=== PATIENT | female | born 1960 | race Caucasian/White ===

== ENCOUNTER 2016-11-09 | Outpatient (CLI) | payer MEDICARE | END 2016-11-09 04:35 | disposition critical access hospital (66) | CPT/HCPCS: A0425; A0427 ==

== ENCOUNTER 2016-11-09 04:55 | Inpatient (IN) | payer MEDICARE ==
[2016-11-09] MEDS ORDERED: ACETAMINOPHEN 325 MG TABLET PO STA (05:11)
[2016-11-09] MEDS ORDERED: cefTRIAXone 1 GM in SODIUM CHLORIDE 0.9% MINIBAG 100 ML IV STA (05:11)
[2016-11-09] MEDS ORDERED: AZITHROMYCIN INJ 500 MG in SODIUM CHLORIDE 0.9% 250 ML IV STA (05:11)
[2016-11-09] MEDS ORDERED: ACETAMINOPHEN 325 MG TABLET PO ONE (05:17)
[2016-11-09] MEDS ORDERED: cefTRIAXone 1 GM VIAL ONE (05:17)
[2016-11-09] MEDS ORDERED: SODIUM CHLORIDE 0.9% 1,000 ML IV STA (06:33)
[2016-11-09] MEDS ORDERED: SODIUM CHLORIDE FLUSH 0.9% 10 ML SYRINGE IVP PRN (06:50)
[2016-11-09] MEDS ORDERED: cefTRIAXone 1 GM in SODIUM CHLORIDE 0.9% MINIBAG 100 ML IV ONE (09:00)
[2016-11-09] MEDS: IPRATROPIUM/ALBUTEROL 3 ML NEB INH PRN ×2 (09:30→14:30)
[2016-11-09] MEDS ORDERED: SODIUM CHLORIDE 0.9% 1,000 ML IV ONE ×2 (09:39→16:36)
[2016-11-09] MEDS: POLYETHYLENE GLYCOL 3350 17 GM PACKET PO SCH (09:44)
[2016-11-09] MEDS ORDERED: ESTRADIOL CYPIONATE PO SCH (09:45)
[2016-11-09] MEDS: NS W/20 MEQ KCL 1,000 ML IV SCH ×2 (11:45→14:30)
[2016-11-09] MEDS: ENOXAPARIN 40 MG/0.4 ML SYRINGE SUBQ SCH (11:45)
[2016-11-09] MEDS: OSELTAMIVIR 75 MG CAPSULE PO SCH ×2 (11:45→21:41)
[2016-11-09] MEDS: SODIUM CHLORIDE FLUSH 0.9% 10 ML SYRINGE IVP SCH ×2 (13:03→23:36)
[2016-11-09] MEDS: ACETAMINOPHEN 325 MG TABLET PO PRN ×2 (14:47→21:42)
[2016-11-09] MEDS: LORazepam 0.5 MG TABLET PO PRN (20:08)
[2016-11-09] MEDS: ZOLPIDEM 5 MG TABLET PO SCH (21:41)
[2016-11-09] MEDS: TIMOLOL 0.5% OPHTH DROPS EACHEYE SCH (23:36)
[2016-11-10] MEDS: NS W/20 MEQ KCL 1,000 ML IV SCH ×2 (01:53→20:52)
[2016-11-10] MEDS ORDERED: SODIUM CHLORIDE 0.9% 1,000 ML IV ONE (01:57)
[2016-11-10] MEDS: LORazepam 0.5 MG TABLET PO PRN ×3 (06:06→20:51)
[2016-11-10] MEDS: SODIUM CHLORIDE FLUSH 0.9% 10 ML SYRINGE IVP SCH ×3 (06:06→20:52)
[2016-11-10] MEDS: IPRATROPIUM/ALBUTEROL 3 ML NEB INH PRN ×3 (07:35→15:00)
[2016-11-10] MEDS ORDERED: TIMOLOL 0.5% OPHTH DROPS EACHEYE SCH (09:00)
[2016-11-10] MEDS ORDERED: cefTRIAXone 500 MG VIAL IVP SCH (09:00)
[2016-11-10] MEDS: cefTRIAXone 2 GM in SODIUM CHLORIDE 0.9% MINIBAG 100 ML IV SCH (09:37)
[2016-11-10] MEDS: OSELTAMIVIR 75 MG CAPSULE PO SCH ×2 (09:37→20:51)
[2016-11-10] MEDS: POLYETHYLENE GLYCOL 3350 17 GM PACKET PO SCH (09:37)
[2016-11-10] MEDS: ENOXAPARIN 40 MG/0.4 ML SYRINGE SUBQ SCH (09:37)
[2016-11-10] MEDS: TIMOLOL 0.5% OPHTH DROPS EACHEYE SCH ×2 (09:38→20:51)
[2016-11-10] MEDS: AZITHROMYCIN INJ 500 MG in SODIUM CHLORIDE 0.9% 250 ML IV SCH (10:47)
[2016-11-10] MEDS: PANTOPRAZOLE 40 MG TABLET PO SCH (14:48)
[2016-11-10] MEDS: ZOLPIDEM 5 MG TABLET PO SCH (20:50)
[2016-11-11] MEDS: NS W/20 MEQ KCL 1,000 ML IV SCH ×3 (01:40→23:38)
[2016-11-11] MEDS: SODIUM CHLORIDE FLUSH 0.9% 10 ML SYRINGE IVP SCH ×3 (06:30→20:51)
[2016-11-11] MEDS: PANTOPRAZOLE 40 MG TABLET PO SCH (06:45)
[2016-11-11] MEDS: LORazepam 0.5 MG TABLET PO PRN ×3 (06:52→23:38)
[2016-11-11] MEDS: traMADol 50 MG TABLET PO PRN ×2 (06:52→13:47)
[2016-11-11] MEDS: POLYETHYLENE GLYCOL 3350 17 GM PACKET PO SCH (08:46)
[2016-11-11] MEDS: ENOXAPARIN 40 MG/0.4 ML SYRINGE SUBQ SCH (08:46)
[2016-11-11] MEDS: cefTRIAXone 2 GM in SODIUM CHLORIDE 0.9% MINIBAG 100 ML IV SCH (08:46)
[2016-11-11] MEDS: OSELTAMIVIR 75 MG CAPSULE PO SCH ×2 (08:47→21:26)
[2016-11-11] MEDS: ALBUTEROL NEB 2.5 MG/3 ML INH PRN ×2 (09:21→17:40)
[2016-11-11] MEDS: AZITHROMYCIN INJ 500 MG in SODIUM CHLORIDE 0.9% 250 ML IV SCH (11:07)
[2016-11-11] MEDS: TIMOLOL 0.5% OPHTH DROPS EACHEYE SCH ×2 (11:07→21:26)
[2016-11-11] MEDS: IPRATROPIUM/ALBUTEROL 3 ML NEB INH PRN (22:07)
[2016-11-11] MEDS: ACETAMINOPHEN 325 MG TABLET PO PRN (22:27)
[2016-11-11] MEDS: ZOLPIDEM 5 MG TABLET PO SCH (23:39)
[2016-11-12] MEDS: SODIUM CHLORIDE FLUSH 0.9% 10 ML SYRINGE IVP SCH (01:47)
[2016-11-12] MEDS: PANTOPRAZOLE 40 MG TABLET PO SCH (06:20)
[2016-11-12] MEDS ORDERED: POTASSIUM CHLORIDE 20 MEQ TABLET PO ONE (08:15)
[2016-11-12] MEDS: ENOXAPARIN 40 MG/0.4 ML SYRINGE SUBQ SCH (08:34)
[2016-11-12] MEDS: OSELTAMIVIR 75 MG CAPSULE PO SCH (08:34)
[2016-11-12] MEDS: cefTRIAXone 2 GM in SODIUM CHLORIDE 0.9% MINIBAG 100 ML IV SCH (08:34)
[2016-11-12] MEDS: LORazepam 0.5 MG TABLET PO PRN (08:53)
[2016-11-12] MEDS: traMADol 50 MG TABLET PO PRN (08:53)
[2016-11-12] MEDS: POLYETHYLENE GLYCOL 3350 17 GM PACKET PO SCH (10:14)
== END 2016-11-12 13:35 | disposition home or self-care (01) | DRG 871 ==
DX: A41.9 Sepsis, unspecified organism (principal); A41.89 Other specified sepsis; J10.00 Influenza due to other identified influenza virus with unspecified type of pneumonia; J45.901 Unspecified asthma with (acute) exacerbation; E86.0 Dehydration; R09.02 Hypoxemia; I95.9 Hypotension, unspecified; K21.9 Gastro-esophageal reflux disease without esophagitis; Z79.82 Long term (current) use of aspirin

== ENCOUNTER 2017-07-04 16:06 | Outpatient (CLI) | payer MEDICARE ==
--- NOTE | 2017-07-05 15:21 | XRAY Report ---
EXAM: RIGHT KNEE RADIOGRAPHY EXAM DATE: 07/04/2017 04:29 PM. CLINICAL HISTORY: 5 VIEW TRAUMA SERIES FOR RT KNEE STRAIN/EDEMA. COMPARISON: None. TECHNIQUE: 5 views. FINDINGS: Bones: No cortical step off or findings of an acute fracture. No destructive bone lesion. In the supe rior tibial metaphysis there is an endosteal bone lesion which is ossification including rings and ar cs of calcification with a chondroid matrix. Joints: Normal. No effusion. No subluxations. Soft Tissues: Normal. No soft tissue swelling. IMPRESSION: 1. No fracture or joint effusion. 2. Sclerotic lesion superior tibia, favoring an end chondroma or chronic bone infarct. [facility] Referring Provider Line: [phone] SITE ID: [id number]
== END 2017-07-04 16:07 | disposition home or self-care (01) ==
LOC: DI.N 16:06
PROVIDERS: ATTEND Family Medicine
DX: M89.9 Disorder of bone, unspecified (principal)

== ENCOUNTER 2017-10-25 15:16 | Outpatient (CLI) | payer MEDICARE ==
--- NOTE | 2017-10-25 15:45 | XRAY Report ---
EXAM: CHEST RADIOGRAPHY EXAM DATE: 10/25/2017 03:37 PM. CLINICAL HISTORY: Pneumonia. COMPARISON: None. TECHNIQUE: 2 views. FINDINGS: Lungs/Pleura: No focal opacities evident. No pleural effusion. No pneumothorax. Normal volumes. Mediastinum: Heart and mediastinal contours are unremarkable. Tortuosity of the descending thoracic a natalie. Small hiatal hernia. Other: None. IMPRESSION: No acute abnormality of the chest demonstrated. [facility] Referring Provider Line: [phone] SITE ID: [id number]
--- NOTE | 2017-10-25 15:45 | XRAY Preliminary Report ---
Exam: XR CHEST 2 VIEW X-RAY IMPRESSION: No acute abnormality of the chest demonstrated. [facility] SITE ID: [id number]
== END 2017-10-25 15:17 | disposition home or self-care (01) ==
LOC: DI 15:16
PROVIDERS: ATTEND Specialist
DX: J18.9 Pneumonia, unspecified organism (principal)
CPT/HCPCS: 71046

== ENCOUNTER 2019-07-28 13:54 | Outpatient (CLI) | payer MEDICARE | END 2019-07-28 13:55 | disposition home or self-care (01) | LOC: DI.N 13:54 | PROVIDERS: ATTEND Internal Medicine | DX: Z53.9 Procedure and treatment not carried out, unspecified reason (principal) ==

== ENCOUNTER 2019-07-29 15:22 | Outpatient (CLI) | payer MEDICARE ==
--- NOTE | 2019-07-31 | XRAY Report ---
Reason: CENTRAL CHEST PAIN Procedure Date: 07/29/2019 Accession Number: [id number] / [id number] Procedure: XRN - Chest 2 View X-Ray CPT Code: 00945 FULL RESULT: EXAM: CHEST RADIOGRAPHY EXAM DATE: 07/29/2019 03:38 PM. CLINICAL HISTORY: CENTRAL CHEST PAIN. COMPARISON: CHEST 2 VIEW 10/25/2017 3:27 PM. TECHNIQUE: 2 views. FINDINGS: Lungs/Pleura: No focal opacities evident. No pleural effusion. No pneumothorax. Normal volumes. Mediastinum: Heart and mediastinal contours are unremarkable. Other: No acute bone findings are seen. IMPRESSION: No acute cardiopulmonary disease seen. [facility]
== END 2019-07-29 15:23 | disposition home or self-care (01) ==
LOC: DI.N 15:22
PROVIDERS: ATTEND Internal Medicine
DX: R07.9 Chest pain, unspecified (principal)
CPT/HCPCS: 71046

== ENCOUNTER 2020-01-13 18:18 | Outpatient (CLI) | payer MEDICARE | END 2020-01-13 18:19 | disposition home or self-care (01) | LOC: COV 18:18 | PROVIDERS: ATTEND Family Medicine | DX: R05 Cough (principal); R50.9 Fever, unspecified ==

== ENCOUNTER 2020-09-24 11:23 | Outpatient (CLI) | payer MEDICARE ==
--- NOTE | 2020-09-24 13:31 | Ultrasound Report ---
PROCEDURE: Abdomen Limited INDICATIONS: RUQ ABD PAIN TECHNIQUE: Real-time focused scanning was performed of the abdomen, with image documentation. COMPARISON: None FINDINGS: The liver demonstrates normal size. The liver demonstrates generalized heterogeneity. Lama javed, no liver lesions are detected. No gallstones or sludge can be seen. The gallbladder wall does not appear thickened. There is no spec ific pericholecystic fluid. The sonographic Petersen's sign is negative. No biliary ductal dilatation is seen. The common bile duct measures 6 mm. The visualized pancreas is within normal limits. The visualized right kidney is unremarkable. The IVC is patent. IMPRESSION: The gallbladder demonstrates a normal sonographic appearance. No biliary dilatation is seen. Heterogeneous appearing liver, without a focal mass identified. No right kidney hydronephrosis is seen. Reviewed by: Jhony Cotto MD on 09/24/2020 12:30 PM [facility] Approved by: Jhony Cotto MD on 09/24/2020 12:30 PM [facility] Station ID: [id number]
== END 2020-09-24 11:24 | disposition home or self-care (01) ==
LOC: DI 11:23
PROVIDERS: ATTEND Physician Assistant Medical
DX: R10.11 Right upper quadrant pain (principal)

== ENCOUNTER 2021-12-14 13:06 | Outpatient (CLI) | payer MEDICARE ==
--- NOTE | 2021-12-14 15:08 | XRAY Report ---
PROCEDURE: Hip w/Pelvis 2-3V RT INDICATIONS: PAIN IN RIGHT HIP, KNEE AND ANKLE TECHNIQUE: AP pelvis with lateral view(s) of the right hip. COMPARISON: None. FINDINGS: Bones: No fractures or dislocations. Pelvic ring appears intact. No suspicious bony lesions. Mode rate symmetric hip and sacroiliac joint degeneration bilaterally. Moderate to severe lower lumbar spi ne disc degeneration. Soft tissues: The visualized bowel gas pattern is normal. No suspicious soft tissue calcifications. 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 Reviewed by: Pratik Peralta MD on 12/14/2021 3:06 PM PST Approved by: Pratik Peralta MD on 12/14/2021 3:06 PM PST Station ID: [id number]
--- NOTE | 2021-12-14 17:55 | XRAY Report ---
PROCEDURE: Ankle 3 View RT INDICATIONS: PAIN IN RIGHT HIP, KNEE AND ANKLE TECHNIQUE: 3 views of the ankle were acquired. COMPARISON: None FINDINGS: Bones: No fractures or dislocations. There is a plantar calcaneal spur. Ankle mortise is normally a ligned. No suspicious bony lesions. Soft tissues: No tibiotalar joint effusion. Achilles tendon appears normal. IMPRESSION: Reviewed by: Abdi Goodwin on 12/14/2021 5:54 PM PST Approved by: Abdi Goodwin on 12/14/2021 5:54 PM [facility] Station ID: [id number]
--- NOTE | 2021-12-14 18:36 | XRAY Report ---
PROCEDURE: Knee 3 View RT INDICATIONS: PAIN IN RIGHT HIP, KNEE AND ANKLE TECHNIQUE: 3 views of the right knee(s) were acquired. COMPARISON: July 04, 2017 FINDINGS: Bones: No fractures or dislocations. No suspicious bony lesions. Sclerotic lesion in the proximal tibial metaphysis remains unchanged from prior. There is moderate medial compartmental joint space na rrowing which has increased. Patellofemoral joint space is preserved. Soft tissues: No joint effusion. No suspicious soft tissue calcifications. IMPRESSION: Moderate medial osteoarthritis Stable sclerotic tibial lesion, enchondroma versus bone infarct Reviewed by: Wade Beck MD on 12/14/2021 5:35 PM [facility] Approved by: Wade Beck MD on 12/14/2021 5:35 PM [facility] Station ID: [id number]
== END 2021-12-14 13:07 | disposition home or self-care (01) ==
LOC: DI 13:06
PROVIDERS: ATTEND Internal Medicine
DX: M16.0 Bilateral primary osteoarthritis of hip (principal); M17.11 Unilateral primary osteoarthritis, right knee; M89.9 Disorder of bone, unspecified; M77.31 Calcaneal spur, right foot; M47.898 Other spondylosis, sacral and sacrococcygeal region

== ENCOUNTER 2022-05-22 19:50 | Outpatient (CLI) | payer MEDICARE | END 2022-05-22 19:51 | disposition home or self-care (01) | LOC: LAB 19:50 | PROVIDERS: ATTEND Ophthalmology | DX: Z01.812 Encounter for preprocedural laboratory examination (principal); H25.811 Combined forms of age-related cataract, right eye; Z20.822 Contact with and (suspected) exposure to COVID-19 ==

== ENCOUNTER 2022-05-23 07:25 | Day surgery (SDC) | payer MEDICARE ==
[~2022-05-23 07:25] MED LIST: CYCLOPENTOLATE 1% OPHTH DROPS 2 ML ONE; KETOROLAC 0.45% OPHTH DROPS ONE; PHENYLEPHRINE 2.5% OPHTH 2 ML DROPS ONE; PROPARACAINE 0.5% OPHTH DROPS 15 ML ONE
[2022-05-23] MEDS ORDERED: MIDAZOLAM 2 MG/2 ML VIAL ONE (08:24)
--- NOTE | 2022-05-23 08:31 | ANESTHESIA ---
Pre-Anesthesia VS, & Labs - Diagnosis senile combined cataract right - Procedure extraction cataract with lens implant Vital Signs: Temp Pulse Resp BP Pulse Ox 36.4 C L 80 16 133/78 H 97 05/23/22 07:44 05/23/22 07:44 05/23/22 07:44 05/23/22 07:44 05/23/22 07:44 Height: 5 ft 6 in Weight (kg): 102.5 kg Body Mass Index: 36.4 BMI Classification: Obese - NPO >8 hours - Is Patient ?: No - Lab Results Lab results reviewed: Yes Home Medications and Allergies Lorazepam 0.5 mg PO QID PRN 11/09/16 Zolpidem Tartrate 10 mg PO QPM 11/09/16 Albuterol Sulf [Ventolin Hfa Inhaler] 1 - 2 puffs INH Q4HR PRN 03/28/22 Gabapentin [Gralise] 300 mg PO DAILY 03/28/22 Propranolol [Inderal] 10 mg PO DAILY 03/28/22 Valacyclovir HCl [Valtrex] 500 mg PO DAILY 03/28/22 oxyCODONE/ACET 5/325 [Percocet 5 mg/325 mg] 1 each PO Q4-6H 03/28/22 Allergies/Adverse Reactions: Allergies Allergy/AdvReac Type Severity Reaction Status Date / Time ciprofloxacin [From Cipro] Allergy Hives Verified 11/09/16 05:06 ciprofloxacin HCl * Allergy Hives Verified 11/09/16 05:06 [From Cipro] Anes History & Medical History - Anesthetic History Anesthesia Complications: reports: No previous complications Family history of Anesthesia Complications: Denies Family history of Malignant Hyperthermia: Denies - Medical History Cardiovascular: reports: None Pulmonary: reports: None Gastrointestinal: reports: None Urinary: reports: None Musculoskeletal: reports: None Endocrine/Autoimmune: reports: None Blood Disorders: reports: None Skin: reports: None Smoking Status: Never smoker History of Cancer?: No - Surgical History Eyes Ears Nose Throat (EENT): reports: Cataracts Gynecologic: reports: Hysterectomy Exam General: Alert, Oriented x3 Dental: WNL Mouth Openin Fingerbreadth Neck Mobility: Normal Mallampati classification: III Thyromental Distance: 4-6 cm Respiratory: Lungs clear Cardiovascular: Regular rate, Normal S1, Normal S2, No murmurs Mental/Cognitive Status: Alert/Oriented X3, Normal for patient Cognitive Status: Within normal limits Plan Anesthesia Type: MAC Consent for Procedure(s) Verified and Reviewed: Yes Code Status: Attempt Resuscitation ASA classification: 2-Mild systemic disease Is this case an emergency?: No
[2022-05-23] MEDS ORDERED: fentaNYL 100 MCG/2 ML VIAL ONE (08:50)
[2022-05-23] MEDS ORDERED: BSS/LIDOCAINE/EPINEPHRINE 1 ML SYRINGE IO ONE (09:00)
[2022-05-23] MEDS ORDERED: TRIAMCIN/MOXIFLOX OPHTHALMIC 0.6 ML VIAL IO ONE ×2 (09:00→09:28)
[2022-05-23] MEDS ORDERED: BRIMONIDINE 0.2% OPHTH DROPS 5 ML OPTH ONE (09:00)
[2022-05-23] MEDS ORDERED: PROPARACAINE 0.5% OPHTH DROPS 15 ML EACHEYE ONE (09:00)
[2022-05-23] MEDS ORDERED: TIMOLOL 0.5% OPHTH DROPS OPTH ONE (09:00)
[2022-05-23] MEDS ORDERED: EPINEPHrine 1 MG/ML AMP IR ONE (09:00)
[2022-05-23] MEDS ORDERED: VANCOMYCIN OPHTH (TOPICAL) 10 MG/ML SYRINGE TOP ONE (09:00)
[2022-05-23] MEDS ORDERED: PROPARACAINE 0.5% OPHTH DROPS 15 ML RIGHTEYE ONE (09:00)
[2022-05-23] MEDS ORDERED: LACTATED RINGERS 1,000 ML IV ONE (09:06)
--- NOTE | 2022-05-23 09:17 | OPERATIVE REPORT ---
Operative Report - Other Other Information/Narrative: Date of Surgery: 05/23/22 Preop Dx: Visually significant cataract right eye. Cataract surgery was performed in the left eye on . Postop Dx: Same Procedure: Phacoemulsification with posterior chamber intraocular lens implant right eye Surgeon: Dr. Lex Robertson Anesthesia: Monitored anesthesia care Complications: None Operative Indications: This is a 62-year-old F with progressive vision loss in the right eye due to 2+ nuclear sclerotic, and 3+ cortical cataract. Best corrected visual acuity was 20/25 with glare to 20/40 vision in the right eye. Indications for surgery were: - Overall decrease in vision - Difficulty seeing words on a computer screen - Difficulty reading - Difficulty seeing words, closed captions, or game scores on TV - Difficulty seeing street signs - Difficulty driving in low light or at night - Difficulty driving at night because of headlights from other vehicles - Difficulty with glare or bright lights in any situation - Difficulty tracking a golf ball - Decreased acuity with firearms The patient was consented at length concerning the risks and benefits of cataract surgery after which the patient expressed a desire to proceed with surgery. Operative Procedure: The patient was taken into OR#3 and placed under monitored anesthesia care. A surgical time-out was conducted confirming correct patient, correct procedure, and correct surgical site. The patient was given topical anesthesia and then prepped and draped in the usual sterile fashion. The eye was entered at the 6 and 3 oclock positions. Intracameral Shugarcaine was injected into the anterior chamber followed by a dispersive viscoelastic. A continuous-tear curvilinear capsulorhexis was performed. The nucleus was hydrodissected and phacoemulsified. The cortex was evacuated using automated infusion and aspiration. A cohesive viscoelastic was injected into the capsular bag and a 22.5 diopter intraocular lens was inserted into the bag. Infusion and aspiration were used to evacuate the viscoelastic materials from the eye. The wounds were hydrated and the eye inflated to physiologic pressure using balanced salt solution. Approximately 0.25ml of a mixture of triamcinolone and moxifloxacin was injected trans-sclerally into the vitreous in the inferotemporal quadrant using a 30 gauge cannula. An additional 0.55ml of a mixture of triamcinolone and moxifloxacin was injected subconjunctivally in the superior quadrant for infection and inflammation prophylaxis. Wound integrity was checked with Weck-Jessica sponges. The patient was taken from the operating room in good condition and given post-op instructions.
[2022-05-23 09:26] VITALS: BP 120/73
[2022-05-23] MEDS ORDERED: BRIMONIDINE 0.2% OPHTH DROPS 5 ML ONE (09:28)
[2022-05-23] MEDS ORDERED: TIMOLOL 0.5% OPHTH DROPS ONE (09:28)
[2022-05-23] MEDS ORDERED: EPINEPHrine 1 MG/ML AMP ONE (09:28)
[2022-05-23] MEDS ORDERED: BSS/LIDOCAINE/EPINEPHRINE 1 ML VIAL ONE (09:28)
--- NOTE | 2022-05-23 09:38 | ANESTHESIA POST OP EVALUATION ---
Anesthesia Post Eval - Post Anesthesia Eval Vitals: Last Vital Signs Temp 36.7 C 05/23/22 09:25 Pulse 72 05/23/22 09:25 Resp 16 05/23/22 09:25 BP 120/73 05/23/22 09:25 Pulse Ox 96 05/23/22 09:25 CV Function Including HR & BP: Stable Pain Control: Satisfactory Nausea & Vomiting: Negative Mental Status: Baseline Respiratory Status: Airway Patent Hydration Status: Satisfactory Anesthesia Complications: None
== END 2022-05-23 07:26 | disposition home or self-care (01) ==
LOC: SDS 07:25
PROVIDERS: ATTEND Ophthalmology
DX: H25.811 Combined forms of age-related cataract, right eye (principal); Z98.42 Cataract extraction status, left eye; E66.9 Obesity, unspecified; Z68.36 Body mass index [BMI] 36.0-36.9, adult
CPT/HCPCS: 66984; A9270; J3490; J7120

== ENCOUNTER 2024-01-01 15:09 | Outpatient (CLI) | payer MEDICARE ==
[2024-01-01] MEDS: ALBUTEROL 1 PUFF INH STA (17:39)
== END 2024-01-01 15:10 | disposition home or self-care (01) ==
LOC: RT 15:09
PROVIDERS: ATTEND Student in an Organized Health Care Education/Training Program
DX: J45.909 Unspecified asthma, uncomplicated (principal)
CPT/HCPCS: 94060